=== PATIENT | female | born 1985 | race Caucasian/White ===

== ENCOUNTER 2018-06-22 09:25 | Inpatient (IN) | payer OTHER ==
[2018-06-22] MEDS ORDERED: Lactated Ringers 1000 ML Bag* 1,000 ML IV ONE (10:13)
[2018-06-22] MEDS ORDERED: Buffered Lidocaine 1% SYRIN* 1 ML/SYRINGE INTRADERM ONE (10:13)
[2018-06-22 10:36] LABS: ABS Basophils 0.1 10^3/ul (0-0.2); ABS Eosinophils 0 10^3/ul (0-0.6); ABS Lymphocytes 1.4 10^3/ul (1.0-4.8); ABS Monocytes 0.8 10^3/ul (0-0.8); ABS Neutrophils 15.9 10^3/ul (1.5-7.7); ABS Nucleated RBC 0 10^3/ul; Eosinophil % 0.1 %; Hematocrit 39 % (35-47); Hemoglobin 12.7 g/dl (12.0-16.0); Lymphocyte % 7.5 %; Mean Corpuscular HGB Conc 33 g/dl (31-36); Mean Corpuscular Hemoglobin 27 pg (27-31); Mean Corpuscular Volume 83 fL (80-97); Mean Platelet Volume 8.9 fL (7.4-10.4); Nucleated Red Blood Cells % 0; Platelet Count 172 10^3/ul (150-450); Red Blood Count 4.66 10^6/ul (4.00-5.40); Red Cell Distribution Width 16 % (10.5-15); White Blood Count 18.2 10^3/ul (3.5-10.8)
--- NOTE | 2018-06-22 10:43 | HP ---
General Information - Reason for Visit contraction q 1-2 minutes - General Information Maternal Age: 32 Grav: 2 Para: 1 SAB: 0 IEA: 0 Estimated Due Date: 06/25/18 Maternal Blood Type and Rh: O Positive - Results this Serology/RPR Result: Non-Reactive Rubella Result: Immune HBsAg Result: Negative HIV Result: Negative GBS Culture Result: Negative Past Medical History Delivery History: Hx C/Section Pertinent Past Medical History: See Records Pertinent Family History: Non-Contributory - Antepartal Records Antepartal Records: Reviewed, Uncomplicated Review of Systems Constitutional: Uncomfortable Gastrointestinal: No Nausea/Vomiting Genitourinary: No Bleeding, No Leaking Fluid Musculoskeletal: Contractions Movement: Normal Exam Allergies/Adverse Reactions: Allergies No Known Allergies Allergy (Verified 06/22/18 09:45) Vital Signs 06/22/18 09:35 Temperature 99.2 F Pulse Rate 78 Respiratory 18 Rate Blood Pressure 114/75 (mmHg) O2 Sat by Pulse 100 Oximetry Lab Values - Entire Visit: Laboratory Tests 06/22/18 06/22/18 10:25 10:25 WBC 18.2 H RBC 4.66 Hgb 12.7 Hct 39 MCV 83 MCH 27 MCHC 33 RDW 16 H Plt Count 172 MPV 8.9 Neut % (Auto) 87.7 Lymph % (Auto) 7.5 [place] % (Auto) 4.4 Eos % (Auto) 0.1 Baso % (Auto) 0.3 Absolute Neuts (auto) 15.9 H Absolute Lymphs (auto) 1.4 Absolute Monos (auto) 0.8 Absolute Eos (auto) 0 Absolute Basos (auto) 0.1 Absolute Nucleated RBC 0 Nucleated RBC % 0 Blood Type O Positive - Measurements Height: 5 ft 5 in Weight: 185 lb Weight in lbs: 185.080095 Body Mass Index (BMI): 30.7 Pre- Weight: 148 lb Weight Gained This : 37 lbs and 0 ozs - Exam Breast: Breast Exam Deferred Extremities: No Edema Heart: Normal Rhythm/Heart Sounds HEENT: No Significant Findings Lungs: Clear Bilaterally Reflexes: DTR 2+ Targeted Exam Findings Cervical Exam: 4cm Presenting Part: Vertex Membrane Status: Intact - per nursing EFM Findings - External Monitor Findings Baseline Heart Rate: 140 External Monitor Findings: Accelerations Present, Variability Moderate Contractions: Strong, 45-90 Seconds Assessment/Plan - Assessment in labor - Obstetrical Risk Factors Obstetrical Risk Factors: Previous C/Section in Labor - Plan Plan: Admit - Anticipate Vaginal Delivery
[2018-06-22] MEDS ORDERED: Lactated Ringers 1000 ML Bag* 1,000 ML IV SCH ×2 (11:00→12:00)
[2018-06-22] MEDS ORDERED: Oxytocin in LR* 20 UNITS/1,000 ML BAG IVPB ONE (11:43)
[2018-06-22] MEDS ORDERED: Glycerin ADULT SUPP PR PRN (11:56)
[2018-06-22] MEDS ORDERED: Dibucaine 1% 28.35 GM TUBE PR PRN (11:56)
[2018-06-22] MEDS ORDERED: Acetaminophen TAB* 325 MG PO PRN (11:56)
[2018-06-22] MEDS ORDERED: Oxytocin in LR* 20 UNITS/1,000 ML BAG IVPB SCH (12:00)
[2018-06-22] MEDS: Ibuprofen TAB* 600 MG PO PRN ×2 (13:15→20:16)
[2018-06-22] MEDS: Docusate CAP* 100 MG PO SCH ×2 (13:16→20:16)
[2018-06-22] MEDS: Witch Hazel PAD* JAR TOPICAL PRN (20:16)
[2018-06-22] MEDS: Simethicone TAB* 80 MG TAB.CHEW PO SCH (21:10)
[2018-06-23] MEDS: Ibuprofen TAB* 600 MG PO PRN ×3 (08:58→21:09)
[2018-06-23] MEDS: Docusate CAP* 100 MG PO SCH ×3 (08:58→21:09)
[2018-06-23] MEDS ORDERED: Ferrous Gluconate TAB* 324 MG TAB PO SCH (09:00)
[2018-06-23 09:07] LABS: ABS Basophils 0 10^3/ul (0-0.2); ABS Eosinophils 0 10^3/ul (0-0.6); ABS Lymphocytes 2.1 10^3/ul (1.0-4.8); ABS Monocytes 1.1 10^3/ul (0-0.8); ABS Neutrophils 13.4 10^3/ul (1.5-7.7); ABS Nucleated RBC 0 10^3/ul; Eosinophil % 0.2 %; Hematocrit 34 % (35-47); Hemoglobin 11.3 g/dl (12.0-16.0); Lymphocyte % 12.3 %; Mean Corpuscular HGB Conc 33 g/dl (31-36); Mean Corpuscular Hemoglobin 28 pg (27-31); Mean Corpuscular Volume 84 fL (80-97); Mean Platelet Volume 8.5 fL (7.4-10.4); Nucleated Red Blood Cells % 0; Platelet Count 170 10^3/ul (150-450); Red Cell Distribution Width 16 % (10.5-15); White Blood Count 16.7 10^3/ul (3.5-10.8)
[2018-06-24 08:39] VITALS: BP 126/72
[2018-06-24] MEDS: Witch Hazel PAD* JAR TOPICAL PRN (08:43)
[2018-06-24] MEDS: Docusate CAP* 100 MG PO SCH (08:43)
[2018-06-24] MEDS: Ibuprofen TAB* 600 MG PO PRN (08:44)
== END 2018-06-24 11:55 | disposition home or self-care (01) | DRG 807 ==
LOC: MCHOBOUT 09:25 → MCHOB 09:40
PROVIDERS: ADMIT Obstetrics & Gynecology; ATTEND Obstetrics & Gynecology
PROC: 10E0XZZ Delivery of Products of Conception, External Approach (ICD-10-PCS; principal; 2018-06-22)
PROC: 0KQM0ZZ Repair Perineum Muscle, Open Approach (ICD-10-PCS; 2018-06-22)
DX: O34.211 Maternal care for low transverse scar from previous cesarean delivery (principal); Z37.0 Single live birth; O70.1 Second degree perineal laceration during delivery; Z3A.39 39 weeks gestation of pregnancy
CPT/HCPCS: 36415; 85025; 86850; 86900; 86901; A9270-GY